=== PATIENT | male | born 1970 | race American Indian/Alaskan Native ===

== ENCOUNTER 2017-06-03 08:41 | Day surgery (SDC) | payer BC ==
[2017-06-01 11:49] VITALS: BMI 25.4
[2017-06-03] MEDS ORDERED: Sodium Chloride 0.9% 1,000 ML IV SCH (09:00)
[2017-06-03 09:21] VITALS: TEMP 98
[2017-06-03] MEDS ORDERED: Lidocaine 1% Inj (20ml) ONE (11:02)
[2017-06-03] MEDS ORDERED: Propofol 10 mg/ml Inj (20 ML) ONE ×2 (11:03→11:34)
[2017-06-03 12:19] VITALS: RESP 16
[2017-06-03 12:37] VITALS: BP 128/82; PULSE 68; O2SAT 97
== END 2017-06-03 13:13 | disposition home or self-care (01) ==
LOC: ENDO 08:41
PROVIDERS: ATTEND Internal Medicine
DX: D12.3 Benign neoplasm of transverse colon (principal); K20.9 Esophagitis, unspecified; K29.70 Gastritis, unspecified, without bleeding; K29.80 Duodenitis without bleeding; K64.8 Other hemorrhoids; K29.50 Unspecified chronic gastritis without bleeding; K29.60 Other gastritis without bleeding; K63.3 Ulcer of intestine; R63.4 Abnormal weight loss; Z80.0 Family history of malignant neoplasm of digestive organs
CPT/HCPCS: 43239; 45381; 45385; 88305; 88342; J2704; J3010; J7040 ×2